=== PATIENT | female | born 1985 | race Caucasian/White ===

== ENCOUNTER 2022-06-16 17:35 | Emergency (ER) | payer OTHER, SELFPAY ==
--- NOTE | ~2022-06-16 | XR_ITS ---
EXAMINATION: XR wrist LT min 3V DATE: 06/16/2022 17:56 INDICATION: Distal left radial pain post fall onto outstretched hand. TECHNIQUE: Posteroanterior, ulnar deviation, oblique, and lateral views of the left wrist were obtain ed. COMPARISON: none FINDINGS: Nondisplaced intra-articular fracture extending across the radial styloid process. The fracture invol ves the articular surface at the ulnar side of the scaphoid fossa with no significant fracture gap or incongruity. No other fractures identified. Joint spaces are normal. Mild soft tissue swelling about the wrist. IMPRESSION: 1. Nondisplaced intra-articular distal left radial fracture. Reviewed, dictated and finalized at location A.
[2022-06-16 17:45] VITALS: BP 107/77; PULSE 62; RESP 18; TEMP 36.7; O2SAT 100
[2022-06-16] MEDS: IBUPROFEN 400 MG TABLET 800 MG PO (18:12)
--- NOTE | 2022-06-16 18:26 | ED.GENADULT ---
HPI - General Adult General Chief complaint: Extremity Injury, Upper Stated complaint: Fall Injury/Left Wrist Source: patient Mode of arrival: ambulatory Limitations: no limitations History of Present Illness HPI narrative: Patient presents for evaluation of left wrist pain. She indicates she was assisting and getting some items out of father's truck. She fell out of the bed and landed on her left side. She did not hit her head. No loss of consciousness. She now reports pain in left wrist. She rates her pain 4/10 severity, without descriptive quality. No paresthesias. Pain is worse with movement. She has not taken any medication for pain. She is right-hand dominant. No additional complaints or concerns. Related Data Home Medications Medication Instructions Recorded Confirmed norethindrone 1 mg-ethinyl See Rx Instructions .Route .COMPLEX 06/16/22 06/16/22 estradiol 20 mcg (21)-iron 75 mg (7) tablet (Blis[place] Fe 03/09 (28)) sertraline 50 mg tablet 50 mg PO DAILY 06/16/22 06/16/22 Allergies Allergy/AdvReac Type Severity Reaction Status Date / Time beeswax Allergy Unknown Verified 06/16/22 18:03 nickel Allergy Unknown Verified 06/16/22 18:03 Review of Systems Review of Systems: CONSTITUTIONAL: Denies fever, chills, or sweats. EYES: Denies visual changes, redness, or discharge. ENT: Denies rhinorrhea, congestion, sore throat, or otalgia. CARDIOVASCULAR: Denies chest pain, palpitations, or edema. RESPIRATORY: Denies cough or dyspnea. GASTROINTESTINAL: Denies abdominal pain, nausea, vomiting, or diarrhea. GENITOURINARY: Denies dysuria or hematuria. SKIN: Denies rash or itching. MUSCULOSKELETAL: Reports left wrist pain NEUROLOGIC: Denies headache, numbness, dizziness, or weakness. PSYCHIATRIC: Denies anxiety or depression. [facility] Past Medical History Medical History Anxiety Left radial fracture Surgical History Surgical History No pertinent past surgical history Family History Family History Father Family history non-contributory Social History Social History Smoking status: Never smoker Substance use: never Gender identity (if verbalized by the patient): Female Spiritual care concerns: No Exam Narrative: GENERAL: Well-appearing, well-nourished, and in no acute distress. HEAD: Normocephalic, atraumatic. EYES: PERRLA and EOMI. ENT: Nares clear, no rhinorrhea or epistaxis. Mucous membranes moist. Oropharynx without tonsillar hypertrophy exudate or other lesions. Bilateral TMs pearly dumont nonbulging NECK: Supple. No adenopathy or masses. No carotid bruits or JVD CHEST: Clear to auscultation. No respiratory distress. No wheezes rales or rhonchi HEART: Regular rate and rhythm. No murmur heard. Normal peripheral pulses. ABDOMEN: Soft, nontender, nondistended, normal active bowel sounds. EXTREMITIES: Tenderness noted throughout the left wrist. No crepitus or deformity. No obvious swelling. 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 5/5 hand senior mechanical development engineer strength on right SKIN: Warm, dry, no rash. NEURO: No focal deficits. Alert and oriented x3. PSYCH: Normal mood and affect. Course Course Emergency Course: This is a 36-year-old female who presented for evaluation of left wrist pain. X-ray showed closed nondisplaced distal radius fracture on the left. She is placed in a sugar-tong and provided with a sling. Advise follow-up with orthopedics. Will discharge with tramadol. Go to the ER for intractable pain or temperature changes to the affected extremity. Patient in agreement plan of care. Level of Care: Express Care Visit Vital Signs Vital signs: Vital Signs Temperature 36.7 C 06/16/22 17:45 Pulse Rate 62 06/16/22 17:45 Respiratory Rate
== END 2022-06-16 18:30 | disposition home or self-care (01) ==
PROVIDERS: Emergency Provider Nurse Practitioner
DX: S52.572A Other intraarticular fracture of lower end of left radius, initial encounter for closed fracture (principal); W17.89XA Other fall from one level to another, initial encounter; F41.9 Anxiety disorder, unspecified
CPT/HCPCS: 29125; 73110; 99214; A4565; A9270; G0463

== ENCOUNTER 2022-09-05 14:00 | Emergency (ER) | payer OTHER, SELFPAY ==
[2022-09-05 14:06] VITALS: BP 102/62; PULSE 74; RESP 16; TEMP 36.4; O2SAT 100
--- NOTE | 2022-09-05 15:04 | ED.SKABFB ---
HPI - Skin/Abscess/Foreign Bdy General Chief complaint: Skin/Abscess/Foreign Body Stated complaint: Skin Sore Time Seen by Provider: 09/05/22 14:20 Source: patient, RN notes reviewed and old records reviewed Mode of arrival: ambulatory Limitations: no limitations History of Present Illness HPI narrative: 36 year old female who presents to [facility] care with complaints of abscess to the bottom of right buttock at thigh fold for the past 3 weeks. Patient states that she had been camping prior to noting this area and thought was chigger bite and put chigger medication on area. Patient reports that for the past 1.5 weeks area has become larger and she did squeeze it and some yellowish pus was emitted. Patient reports that she has increased pain to area with redness. 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 Patient denies any known fevers but has felt nauseated today. MD complaint: abscess/boil Onset (ago): week(s) (3) Location: buttocks (right distal buttock) Severity scale (1-10): 6 Quality: aching and constant Treatments prior to arrival: attempted to drain pus at home and other (initially put chigger medication on area) Related Data Home Medications Medication Instructions Recorded Confirmed norethindrone 1 mg-ethinyl See Rx Instructions .Route .COMPLEX 06/16/22 09/05/22 estradiol 20 mcg (21)-iron 75 mg (7) tablet (Blisovi Fe 03/09 (28)) sertraline 50 mg tablet 50 mg PO DAILY 06/16/22 09/05/22 valacyclovir 1 gram tablet 1,000 mg PO DIRECTED 09/05/22 09/05/22 Allergies Allergy/AdvReac Type Severity Reaction Status Date / Time beeswax Allergy Unknown Verified 09/05/22 14:12 nickel Allergy Unknown Verified 09/05/22 14:12 Review of Systems Review of Systems: CONSTITUTIONAL: Denies fever, chills, or sweats. CARDIOVASCULAR: Denies chest pain, palpitations, or edema. RESPIRATORY: Denies cough or dyspnea. GASTROINTESTINAL: Denies abdominal pain, nausea, vomiting SKIN: Reports redness and swelling from lesion on right lower buttock that has drained some purulent drainage,no pain beyond proportion or any fever MUSCULOSKELETAL: Denies myalgia. NEUROLOGIC: Denies headache, numbness All systems reviewed & are unremarkable except as noted in HPI and below PMFSH Past Medical History Medical History (Updated 09/05/22 @ 15:12 by Guillermina So NP) Anxiety Left radial fracture Radial styloid - May 2022 Surgical History Surgical History History of oral surgery titanium implants Family History Family History Father Diabetes mellitus Hypertension Depression Grandparent Alcoholism Cancer Diabetes mellitus Son Asthma Mother Depression Sibling Depression Other Depression Social History Social History Smoking status: Never smoker Alcohol intake: current Alcohol use details: occasionally Substance use: never Substance use type: does not use Lack of Transportation: No Lack of Food: Never True Current Housing: I Have Housing Concerned About Future Housing: No Difficulty Paying Gas/Electric Bills: No Difficulty Paying for Meds: No Currently Unemployed: No Education: Bachelor's Degree Difficulty w/ Childcare or Family Care: No Living arrangements: with family Occupation/Education: occupation 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 There is no relevant family history pertinent to the presenting complaint Exam Narrative: GENERAL: Well-appearing, well-nourished, and in no acute distress. HEAD: Normocephalic, at
== END 2022-09-05 15:15 | disposition home or self-care (01) ==
PROVIDERS: Emergency Provider Registered Nurse
DX: L02.31 Cutaneous abscess of buttock (principal); F41.9 Anxiety disorder, unspecified; Z86.14 Personal history of Methicillin resistant Staphylococcus aureus infection
CPT/HCPCS: 87070; 87147; 87181; 87186; 87205; 99213; G0463

== ENCOUNTER 2023-04-06 08:37 | Emergency (ER) | payer OTHER, SELFPAY ==
--- NOTE | 2023-04-06 08:52 | ED.URI ---
HPI - URI/Sore Throat General Chief Complaint: Upper Respiratory Infection Stated Complaint: Sore Throat/Cough Source: patient, RN notes reviewed and old records reviewed Mode of arrival: ambulatory Limitations: no limitations History of Present Illness HPI Narrative: 37-year-old female presents to [facility] with complaint of productive cough, congestion, sore throat this started Saturday. Patient taking [id number] medications with little relief. Patient denies chest pain, shortness of breath, weakness, dizziness. Related Data Home Medications Medication Instructions Recorded Confirmed norethindrone 1 mg-ethinyl See Rx Instructions .Route .COMPLEX 06/16/22 04/06/23 estradiol 20 mcg (21)-iron 75 mg (7) tablet (Blisovi Fe 03/09 (28)) sertraline 50 mg tablet 50 mg PO DAILY 06/16/22 04/06/23 spironolactone 100 mg tablet 100 mg PO DAILY 04/06/23 04/06/23 Allergies Allergy/AdvReac Type Severity Reaction Status Date / Time beeswax Allergy Unknown Verified 09/05/22 14:12 nickel Allergy Unknown Verified 09/05/22 14:12 Review of Systems Constitutional: Constitutional: Reports no additional constitutional complaints, Denies body ache(s), Denies chills, Denies fatigue, Denies fever(s) and Denies headache(s) Eyes: Eyes: Reports no additional eye complaints and Denies blurry vision ENT: Reports system reviewed and no additional complaints, except as documented, Denies vertigo, Denies dizziness, Denies ear discharge, Denies otalgia, Denies facial pain, Denies headache(s), Reports nasal congestion, Reports nasal discharge, Denies sinus pain, Reports sinus pressure and Reports sore throat Cardiovascular: Cardiovascular: Reports no additional cardiovascular complaints, Denies chest pain, Denies chest pain at rest, Denies rapid heart rate and Denies dyspnea Respiratory: Respiratory: Reports no additional respiratory complaints, Reports chest congestion, Reports cough, Denies pain on inspiration, Denies pain with cough and Denies dyspnea Gastrointestinal: Gastrointestinal: Denies abdominal pain, Denies diarrhea, Denies nausea and Denies vomiting Integumentary/Breasts: Skin/Breast: Denies rash Neurologic: Reports system reviewed and no additional complaints, except as documented, Denies vertigo, Denies dizziness and Denies headache(s) Endocrine: Endocrine: Denies fatigue [facility] Past Medical History Medical History Anxiety Left radial fracture Radial styloid - May 2022 Surgical History Surgical History History of oral surgery titanium implants Family History Family History Father Diabetes mellitus Hypertension Depression Grandparent Alcoholism Cancer Diabetes mellitus Son Asthma Mother Depression Sibling Depression Other Depression Social History Social History Smoking status: Never smoker Alcohol intake: current Alcohol use details: occasionally Substance use: never Substance use type: does not use Lack of Transportation: No Lack of Food: Never True Current Housing: I Have Housing Concerned About Future Housing: No Difficulty Paying Gas/Electric Bills: No Difficulty Paying for Meds: No Currently Unemployed: No Education: Bachelor's Degree Difficulty w/ Childcare or Family Care: No Living arrangements: with family Occupation/Education: occupation 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 There is no relevant family history pertinent to the patient complaint. Exam Const: Gener
[2023-04-06 09:06] VITALS: BP 102/60; PULSE 87; RESP 16; TEMP 36.2; O2SAT 98
== END 2023-04-06 09:40 | disposition home or self-care (01) ==
PROVIDERS: Emergency Provider Registered Nurse
DX: J10.1 Influenza due to other identified influenza virus with other respiratory manifestations (principal); Z20.822 Contact with and (suspected) exposure to COVID-19; F41.9 Anxiety disorder, unspecified
CPT/HCPCS: 87081; 87426; 87804; 87880; 99213; G0463

== ENCOUNTER 2024-03-04 08:02 | Emergency (ER) | payer BC, SELFPAY ==
[2024-03-04 08:11] VITALS: BP 102/83; PULSE 100; RESP 16; TEMP 36.1; O2SAT 100
--- NOTE | 2024-03-04 08:16 | ED.SKABFB ---
HPI - Skin/Abscess/Foreign Bdy General Chief complaint: Skin/Abscess/Foreign Body Stated complaint: Rash Time Seen by Provider: 03/04/24 08:16 Source: patient Mode of arrival: ambulatory Limitations: no limitations History of Present Illness HPI narrative: 38 yo F presents with c/o itchy hives starting approx. 30 mins prior to arrival. Unknown what she is having allergic reaction to. Has not taken benadryl. No swelling. No difficulty breathing or swallowing. All systems reviewed and negative except as noted above. Related Data Home Medications ?Medication ?Instructions ?Recorded ?Confirmed ?Last Taken ?Type norethindrone 1 mg-ethinyl See Rx Instructions .Route .COMPLEX 06/16/22 04/06/23 Unknown History estradiol 20 mcg (21)-iron 75 mg (7) tablet (Blisovi Fe 03/09 (28)) sertraline 50 mg tablet 50 mg PO DAILY 06/16/22 04/06/23 Unknown History spironolactone 100 mg tablet 100 mg PO DAILY 04/06/23 03/04/24 Unknown History Allergies Allergy/AdvReac Type Severity Reaction Status Date / Time beeswax Allergy Unknown Verified 09/05/22 14:12 nickel Allergy Unknown Verified 09/05/22 14:12 Review of Systems Review of Systems: CONSTITUTIONAL: Denies fever, chills, or sweats. EYES: Denies visual changes, redness, or discharge. ENT: Denies rhinorrhea, congestion, sore throat, or otalgia. CARDIOVASCULAR: Denies chest pain, palpitations, or edema. RESPIRATORY: Denies cough or dyspnea. GASTROINTESTINAL: Denies abdominal pain, nausea, vomiting, or diarrhea. GENITOURINARY: Denies dysuria or hematuria. SKIN: Reports hives and itching. MUSCULOSKELETAL: Denies back pain, joint pain, or myalgia. NEUROLOGIC: Denies headache, numbness, or weakness. PSYCHIATRIC: Denies anxiety or depression. All other systems reviewed are negative, except as documented in HPI. [facility] Past Medical History Medical History Anxiety Left radial fracture Radial styloid - May 2022 Surgical History Surgical History History of oral surgery titanium implants Family History Family History Father Diabetes mellitus Hypertension Depression Grandparent Alcoholism Cancer Diabetes mellitus Son Asthma Mother Depression Sibling Depression Other Depression Social History Social History Smoking status: Never smoker Alcohol intake: current Alcohol use details: occasionally Substance use: never Substance use type: does not use Lack of Transportation: No Lack of Food: Never True Current Housing: I Have Housing Concerned About Future Housing: No Difficulty Paying Gas/Electric Bills: No Difficulty Paying for Meds: No Currently Unemployed: No Education: Bachelor's Degree Difficulty w/ Childcare or Family Care: No Living arrangements: with family Occupation/Education: occupation 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 There is no relevant family history pertinent to the presenting complaint. Exam Narrative: GENERAL: This is a well-nourished, well-developed patient, in no apparent distress. HEAD: normocephalic, atraumatic. EYES: PERRL. Sclera clear/white. Vision is grossly intact. EARS: External ears normal NOSE: External nose normal NECK: Neck supple, non-tender without lymphadenopathy, masses or thyromegaly. CARDIOVASCULAR: Regular rate and rhythm without murmurs, gallops, or rubs. RESPIRATORY: Clear to auscultation. Breath sounds equal bilaterally. No wheezes, rales, or rhonchi. SKIN: warm, Dry, intact, good texture and turgor. erythematous hives to face, neck, chest, bilateral arms and bilateral legs. NEURO: awake, alert, and oriented to person, place and time. There were no obvious focal neurologic abnormalities. EXTREMITIES: No joint tenderness, effusion, or edema noted. Course Course Level of Care: Express Care Visit Vital Signs Vital signs: Vital Signs Temperature 36.1 C L 03/04/24 08:11 Pulse Rate 100 03/04/24 08:11 Respiratory Rate 16 03/04/24 08:11 Blood Pressure 102/83 03/04/24 08:11 Pulse Oximetry 100 03/04/24 08:11 Oxygen Delivery Room Air 03/04/24 08:11 Temperature 36.1 C L 03/04/24 08:11 Pulse Rate 100 03/04/24 08:11 Respiratory Rate 16 03/04/24 08:11 Blood Pressure 102/83 03/04/24 08:11 Pulse Oximetry 100 03/04/24 08:11 Oxygen Delivery Room Air 03/04/24 08:11 Review MDM - Skin/Abscess/Foreign Bdy MDM Narrative Medical decision making narrative: well-appearing, nontoxic. No respiratory distress. Patient given prednisone Pepcid and Benadryl. Swollen medications without difficulty. Patient is aware of diagnosis, understands and agrees to treatment plan. Anticipatory guidance given. Patient agrees to follow-up as directed and is aware of reasons to seek care at the emergency department. Portions of this record may have been created with voice recognition software Differential Diagnosis Differential diagnosis: Likely viral exanthem, urticaria, allergic reaction to drug and contact dermatitis Discharge Plan Discharge Clinical Impression: Acute urticaria Patient Disposition: Home, Self-Care Condition: Stable Instructions: Antibiotic Form Additional Instructions: take medications as prescribed. Continue taking [id number] Benadryl every 4-6 hours as needed for allergic reaction symptoms. follow-up with your primary care physician if not improving. For any worsening of symptoms, difficulty breathing, difficulty swallowing go to the ER. Patient Language: Amharic Prescriptions: New prednisone 20 mg tablet 40 mg PO DAILY 5 Days Qty: 10 0RF famotidine [Pepcid] 20 mg tablet 20 mg PO BID 5 Days Qty: 10 0RF No Action norethindrone-e.estradiol-iron [[place]isovi Fe 03/09 (28)] 1 mg-20 mcg (21)/75 mg (7) tablet See Rx Instructions .ROUTE .COMPLEX Rx Instructions: as prescribed sertraline 50 mg tablet 50 mg PO DAILY spironolactone 100 mg tablet 100 mg PO DAILY Follow-up/Referrals: PHYSICIAN NOT ON STAFF,NONSTAFF [Primary Care Provider] - Time of Disposition: 08:46
[2024-03-04] MEDS: diphenhydrAMINE HCl CAP 25 MG CAPSULE PO (08:34)
[2024-03-04] MEDS: FAMOTIDINE 20 MG TABLET 40 MG PO (08:34)
[2024-03-04] MEDS: predniSONE 20 MG TABLET 40 MG PO (08:34)
== END 2024-03-04 08:52 | disposition home or self-care (01) ==
PROVIDERS: Emergency Provider Nurse Practitioner Family
DX: L50.9 Urticaria, unspecified (principal)
CPT/HCPCS: 99213; A9270; G0463; J7512